=== PATIENT | female | born 1990 | race Caucasian/White ===

== ENCOUNTER 2016-09-30 08:28 | Observation (INO) | payer OTHER ==
[2016-09-30] MEDS ORDERED: LIDOCAINE 1% 5 ML SDV ONE (08:52)
[2016-09-30] MEDS ORDERED: PROPOFOL 200 MG/20 ML VIAL ONE (08:52)
[2016-09-30] MEDS ORDERED: fentaNYL 250 MCG/5 ML INJ ONE (08:52)
[2016-09-30] MEDS ORDERED: ONDANSETRON 4 MG/2 ML VIAL ONE (08:53)
[2016-09-30] MEDS ORDERED: DEXAMETHASONE 4 MG/ML VIAL ONE ×3 (08:53)
[2016-09-30] MEDS ORDERED: LIDOCAINE 2% 5 ML SDV ONE (08:55)
[2016-09-30] MEDS ORDERED: ROCURONIUM 50 MG/5 ML VIAL ONE (08:57)
[2016-09-30] MEDS ORDERED: LR 1,000 ML IV ONE (09:09)
[2016-09-30] MEDS ORDERED: LIDOCAINE 1% 5 ML SDV ID PRN (09:09)
[2016-09-30] MEDS ORDERED: SCOPOLAMINE HYDROBROMIDE 1.5 MG PATCH TD ONE (09:41)
[2016-09-30] MEDS ORDERED: MIDAZOLAM 2 MG/2 ML VIAL ONE (09:48)
[2016-09-30] MEDS ORDERED: ACETAMINOPHEN 160 MG/5 ML UDCUP PO PRN (12:15)
[2016-09-30] MEDS ORDERED: ONDANSETRON 4 MG/2 ML VIAL IVP PRN ×2 (12:17→14:11)
[2016-09-30] MEDS ORDERED: HYDROCOD/APAP 7.5/325 IN 15ML UDCUP ONE (12:17)
[2016-09-30] MEDS ORDERED: D5W 1/2 NS 1,000 ML IV ONE (12:30)
--- NOTE | 2016-09-30 14:09 | GOP ---
[f rep st] OPERATIVE REPORT DATE OF OPERATION: 09/30/2016 SURGEON: Carlie Kirkland MD ANESTHESIA: General. PREOPERATIVE DIAGNOSIS: 1. Recurrent sore throat. 2. History of recurrent tonsilloliths. 3. Sleep-disordered breathing. POSTOPERATIVE DIAGNOSIS: 1. Recurrent sore throat. 2. History of recurrent tonsilloliths. 3. Sleep-disordered breathing. PROCEDURE PERFORMED: Tonsillectomy bilaterally, over 12. FINDINGS: The patient was found to have 2 to 3+ tonsils that were cryptic with multiple stones throu ghout. Adenoids were noted to be very minimal, so they were not removed. ESTIMATED BLOOD LOSS: Minimal. INDICATIONS: The patient is a very pleasant 26-year-old woman who came in for recurrent sore throat, tonsilloliths, and potentially obstructive sleep apnea. She states she had never gotten her tonsils out prior because her symptoms were intermittent, but they have gotten worse. She did have a sleep study done in [place], [place] 2 years ago, and we got those results, and the total AHI was 1.1. We initially had planned to admit her secondary to potential sleep apnea, although after we got these re sults, it was felt that she would be safe to go home overnight as long as everything else is okay aft er surgery. DESCRIPTION OF PROCEDURE: The patient was first seen in the preoperative area. Informed consent was obtained. She was then brought back to the operating room, where Anesthesia sedated and intubated h er. The bed was turned 90 degrees, and a shoulder roll was placed. She was prepped and draped in th e normal fashion. A Evy-Jovany mouth gag was placed in the mouth, and then suspended on a Herrera miri d. I palpated the palate to make sure there was not a submucous cleft palate, which there was not. After I did this, a red rubber catheter was placed through the right naris and brought out through th e oral cavity, thereby suspending the palate. I then grasped the right tonsil with a curved Allis cl amp, and removed the tonsil in a subcapsular plane, taking care to stay medial to the musculature. T he tonsil was removed as a whole, and sent off the field for pathology. Any small bleeding vessels w ere cauterized using suction cautery on a low setting. We then turned our attention to the left side and removed the tonsil in the exact same fashion, again, in a subcapsular plane, removing it as a wh ole, and then cauterizing any small bleeding vessels with suction cautery. At this point, the adenoi d mirror was used to visualize the adenoid bed, and there was no significant obstruction or adenoid t issue, so we did not perform an adenoidectomy at this point. At this point, the red rubber catheter was removed and then the Evy-Jovany mouth gag was unsuspended, releasing any tension on the tonsilla r fossa. Then, after about 30 seconds, it was re-suspended. The tonsillar fossae bilaterally were v isualized with the mirror and the naked eye, and there was noted to be no active bleeding. The oroph arynx was suctioned clear, and then the patient was unsuspended. The Evy-Jovany mouth gag was remov ed, and she was turned back over to Anesthesia, where she was awoken, extubated, and taken to PACU in stable condition. There were no complications. She tolerated the procedure well. COMPLICATIONS: None. /[id number]/MODL
[2016-09-30] MEDS ORDERED: HYDROCOD/APAP 7.5/325 IN 15ML UDCUP PO PRN (14:11)
--- NOTE | 2016-09-30 14:11 | POSTOPPROG ---
Post Op Note Date of Operation: 09/30/16 Surgeon: Carlie Kirkland Anesthesia: GET(General Endotracheal) Pre-op Diagnosis: recurrent tonsillitis, SDB Post-op Diagnosis: same Procedure: tonsillectomy B > 12 yo Findings: 2+, cryptic, tonsilloliths Inf/Abcess present in the surg proc area at time of surgery?: No Complications: none apparent Specimen(s): B tonsils
[2016-09-30] MEDS ORDERED: D5W 1/2 NS W/ 20 KCl/L 1,000 ML IV SCH (14:15)
--- NOTE | 2016-09-30 14:18 | SOAPPROG ---
SOAP Progress Note Assessment/Plan: Assessment: Pt admitted d/t telling anesthesia she feels like she isn't breathing normally. Also c/o pain. States to me back of throat feels funny and swollen. No bleeding. Sats are > 95%, speaking well, no sterdor or stridor and NAD. Also states she feels itchy, though this occurs if she misses zyrtec dose, which she didn't take this am. Just took this med within the past hour. Will admit for obs to watch sats, confirm no allergic rxn or other issues. Will plan for d/c home tomorrow assuming tonight goes well. Plan: 09/30/16 14:15 Objective: Vital Signs Temp Pulse Resp BP Pulse Ox 14 124/75 H 98 09/30/16 11:46 09/30/16 11:46 09/30/16 11:46 - Pending Discharge Pending Discharge Within 24 Hours: Yes Pending Discharge Date: 10/01/16 Pending Discharge Time: 11:00 ICD10 Worksheet Patient Problems: Problems Problem Status Diagnosed Sleep-disordered breathing Acute - ICD10 Problem Qualifiers (1) Sleep-disordered breathing
[2016-09-30] MEDS ORDERED: diphenhydrAMINE 25 MG CAP PO PRN (15:45)
[2016-09-30] MEDS: HYDROCOD/APAP 7.5/325 IN 15ML UDCUP PO PRN ×2 (16:33→21:08)
[2016-09-30] MEDS ORDERED: diphenhydrAMINE 12.5 MG/5 ML UDCUP PO PRN ×2 (16:34→23:42)
[2016-09-30] MEDS ORDERED: ONDANSETRON DISINTEGRATING 4 MG TAB PO PRN (16:51)
[2016-10-01] MEDS: HYDROCOD/APAP 7.5/325 IN 15ML UDCUP PO PRN ×3 (01:29→11:21)
[2016-10-01] MEDS ORDERED: CETIRIZINE 10 MG TAB PO SCH (09:00)
[2016-10-01 09:39] VITALS: BP 114/68; PULSE 62; RESP 16; TEMP 97.7; O2SAT 94
[2016-10-01] MEDS ORDERED: IBUPROFEN SUSP 100 MG/5 ML UDCUP PO PRN (10:14)
--- NOTE | 2016-10-01 10:29 | SOAPPROG ---
SOAP Progress Note Assessment/Plan: Assessment: Did well O/N. Sats mid to upper 90s throughout. Still c/o globus which I think is just post op sensation/swelling. looks great. Given pain meds, zofran yesterday to parents. Will be staying with them for next 2 weeks. Given things to watch for and po instructiosn. RTC 3 weeks. Call with issues or sxs that progress.D/c home today Plan: 09/30/16 14:15 10/01/16 10:26 Subjective: Doing well, VSS and no O2 O/N. C/o pain and globus sensation Objective: AFVSS RA up and around no bleeding OP patent, nl po appearance Vital Signs Temp Pulse Resp BP Pulse Ox 36.5 C 62 16 114/68 94 10/01/16 09:38 10/01/16 09:38 10/01/16 09:38 10/01/16 09:38 10/01/16 09:38 ICD10 Worksheet Patient Problems: Problems Problem Status Diagnosed Sleep-disordered breathing Acute - ICD10 Problem Qualifiers (1) Sleep-disordered breathing
== END 2016-10-01 11:38 | disposition home or self-care (01) ==
LOC: F3N 08:28 → FOB 15:57
PROVIDERS: ADMIT Otolaryngology; ATTEND Otolaryngology
PROC: 0CTPXZZ Resection of Tonsils, External Approach (ICD-10-PCS; principal; 2016-09-30 10:00)
DX: J03.91 Acute recurrent tonsillitis, unspecified (principal); G47.33 Obstructive sleep apnea (adult) (pediatric)
CPT/HCPCS: 42826; G0378; J1100; J2250; J2405; J2704; J3010